=== PATIENT | male | born 1950 | race Caucasian/White ===

== ENCOUNTER 2016-11-18 15:15 | Inpatient (IN) | payer MEDICARE ==
[2016-11-18] MEDS ORDERED: NS 0.9% 1000 ML* 1,000 ML IV ONE (16:21)
[2016-11-18 16:36] LABS: Hematocrit 39 % (42-52); Hemoglobin 12.8 g/dl (14.0-18.0); Mean Corpuscular HGB Conc 33 g/dl (31-36); Mean Corpuscular Hemoglobin 30 pg (27-31); Mean Corpuscular Volume 91 fL (80-94); Mean Platelet Volume 9 um3 (7.4-10.4); Red Blood Count 4.25 10^6/ul (4.0-5.4); Red Cell Distribution Width 15 % (10.5-15); White Blood Count 12.4 10^3/ul (3.5-10.8)
[2016-11-18 16:51] LABS: ALT 85 U/L (7-52); Albumin 3.8 g/dL (3.2-5.2); Blood Urea Nitrogen 11 mg/dL (6-24); C Reactive Protein 46.19 mg/L (< 5.00); CO2 Carbon Dioxide 21 mmol/L (22-32); Calcium 9.2 mg/dL (8.6-10.3); Chloride 101 mmol/L (101-111); EGFR African American 96.1 (>60); EGFR Non-African American 74.8 (>60); Globulin 4.6 g/dL (2-4); Glucose 106 mg/dL (70-100); Lipase < 10 U/L (11.0-82.0); Sodium 130 mmol/L (133-145); Total Protein 8.4 g/dL (6.4-8.9)
[2016-11-18 16:52] LABS: Troponin I 0.01 ng/mL (<0.04)
[2016-11-18 16:54] LABS: Anion Gap 8 mmol/L (2-11)
--- NOTE | 2016-11-18 17:08 | RAD ---
Indication: Abdominal pain. Single frontal view of the chest performed at 0430 hours was reviewed. No priors are available. No mediastinal shift is noted. Heart is of normal size and configuration. Lung bean appear clear. IMPRESSION: NO ACTIVE CARDIOPULMONARY DISEASE IS NOTED.
[2016-11-18] MEDS ORDERED: Iohexol 300* (CONTRAST) 10 ML SDV IV ONE (17:38)
[2016-11-18 17:59] LABS: Urine Bilirubin Negative (Negative); Urine Glucose Negative (Negative); Urine Nitrite Negative (Negative)
[2016-11-18 18:52] LABS: Alkaline Phosphatase 151 U/L (34-104)
--- NOTE | 2016-11-18 19:14 | RAD ---
Indication: Abdominal pain, blood in stool. Contrast: Administered 135.8 ml of OMNIPAQUE 300 mgi/ml CT of the abdomen and pelvis was performed after oral and IV contrast administration. Coronal and sagittal reconstructed images were obtained. The lung bases demonstrate no pleural fluid, nodules or masses. Heart is of normal size without evidence of pericardial effusion. Liver is normal in size. It is diffusely decreased in density consistent with hepatic steatosis. The gallbladder demonstrates no calcified gallstones. No pericholecystic fluid or wall thickening is identified. The common duct is not dilated. The pancreas indicates no mass or pancreatic ductal dilatation. The spleen is normal in size. No adrenal lesions are noted. The kidneys demonstrate symmetric nephrograms without focal lesions. No hydronephrosis is noted. Aorta and inferior vena cava are unremarkable. No dilated loops of bowel are noted. Contrast is noted in the right colon. The descending colon demonstrates some mucosal edema from the splenic flexure to the junction of the descending sigmoid colon. There is thumbprinting noted. This is consistent with colitis the etiology of which is unclear. This may represent ischemic, or infectious. CT of the pelvis demonstrates enlarged prostate. Urinary bladder demonstrates diffuse wall thickening. No left-sided inguinal hernia is noted containing omentum. Diverticulosis without definite evidence of diverticulitis. The visualized abdominal organs are otherwise unremarkable. Degenerative disc disease at L5-S1 is noted. IMPRESSION: THERE IS SUBMUCOSAL EDEMA IN THE DESCENDING COLON CONSISTENT WITH COLITIS WHICH MAY BE INFECTIOUS OR ISCHEMIC IN ETIOLOGY. DIFFUSE WALL THICKENING OF THE URINARY BLADDER WITH ENLARGED PROSTATE. LEFT-SIDED INGUINAL HERNIA CONTAINING OMENTUM. HEPATIC STEATOSIS.
[2016-11-18] MEDS ORDERED: Ciprofloxacin 400MG IVPREMIX(* 400 MG/200 ML BAG IVPB ONE (19:17)
[2016-11-18] MEDS ORDERED: metroNIDAZOLE IV 500 MG/100ML* 500 MG/100 ML BAG IVPB ONE (19:17)
--- NOTE | 2016-11-18 19:20 | ED ---
Evans Christy Thomas, scribed for Markos Estrada MD on 11/18/16 at 1624 . Abdominal Pain/Male - HPI Summary HPI Summary: The pt is a 68 y/o M presenting to the ED c/o lower abd pain. The pain began yesterday afternoon, is rated 8/10, and is described as sharp in quality. The pain is worsened with movement and with drinking of water. He additionally c/o hard stools, bloody stools, bloating, and diaphoresis. He denies lightheadedness. He took a stool softener yesterday, which caused him to nearly pass out when taking a BM yesterday. The pt has had difficulty with defecating since his knee arthroplasty 3 weeks ago. Since his surgery, the pt reports having hard stools frequently. yesterday night, he had a bloody BM described as "rabbit poop and bloody water with no clots". His next BM was today, with similar "rabbit poop and bloody water" appearance but less blood. He reports straining during both of these BMs. He denies a previously documented Hx of hemorrhoids. He has been passing gas regularly. - History of Current Complaint Chief Complaint: EDAbdPain Stated Complaint: BLOOD IN STOOL Time Seen by Provider: 11/18/16 16:06 Hx Obtained From: Patient Onset/Duration: Sudden Onset, Lasting Days - onset 1 day ago, Still Present Severity Currently: Severe Pain Intensity: 8 Pain Scale Used: 0-10 Numeric Location: Other - lower abd Character: Sharp Associated Signs And Symptoms: Positive: Diaphoresis, Blood in Stool, Other - POS: hard stools, bloating; NEG: lightheadedness - Allergies/Home Medications Allergies/Adverse Reactions: Allergies Allergy/AdvReac Type Severity Reaction Status Date / Time No Known Allergies Allergy Verified 11/18/16 16:01 Home Medications: Home Medications Acetaminophen TAB* [Tylenol TAB*] 650 mg PO Q6H PRN 11/18/16 [History Confirmed 11/18/16] Finasteride TAB* [Proscar TAB*] 5 mg PO DAILY 11/18/16 [History Confirmed ] Sulfamethox/Trimethoprim DS* [Bactrim DS 800/160 TAB*] 1 tab PO BID 11/18/16 [ History Confirmed 11/18/16] Tamsulosin CAP* [Flomax CAP*] 0.4 mg PO DAILY 11/18/16 [History Confirmed ] PMH/Surg Hx/FS Hx/Imm Hx Previously Healthy: No Sensory History: Denies: Hx Legally Blind Opthamlomology History: Denies: Hx Eye Prosthesis - Surgical History Surgery Procedure, Year, and Place: hernia. back Infectious Disease History: No Infectious Disease History: Denies: Traveled Outside the [place] in Last 30 Days - Family History Known Family History: Positive: Diabetes Negative: Cardiac Disease - Social History Alcohol Use: None Substance Use Type: Reports: None, Prescribed Substance Use Comment - Amount & Last Used: percocet for pain after surgery Smoking Status (MU): Never Smoked Tobacco Type: Smokeless Tobacco Amount Used/How Often: 1 pouch every week Review of Systems Positive: Skin Diaphoresis. Negative: Fever Eyes: Negative ENT: Negative Cardiovascular: Negative Respiratory: Negative Positive: Abdominal Pain - lower, Other - POS: hard stools, bloody stools, bloating Genitourinary: Negative Musculoskeletal: Negative Skin: Negative Neurological: Negative, Other - NEG: lightheadedness Psychological: Normal All Other Systems Reviewed And Are Negative: Yes Physical Exam - Summary Physical Exam Summary: Gen: well-appearing, mild pain distress Skin: warm, color, dry Head: normal Eyes: EOMI, [place] ENT: normal Neck: supple, nontender Resp: CTA, breath sounds present Cardio: RRR Abd: bloated, diffusely tympanic. Bowel: present Rectal: external hemorrhoid that is not thrombosed. BRB at the anus. Musc: normal, strength/ROM intact Neuro: normal, sensory/motor intact, A&O x3 Psych: affect/mood appropriate Triage Information Reviewed: Yes Vital Signs On Initial Exam: Initial Vitals Temp Pulse Resp BP Pulse Ox 98.1 F 94 18 129/70 98 11/18/16 15:25 11/18/16 15:25 11/18/16 15:25 11/18/16 15:25 11/18/16 15:25 Vital Signs Reviewed: Yes - [place] Coma Scale Coma Scale Total: 15 Diagnostics - Vital Signs Vital Signs Temp Pulse Resp BP Pulse Ox 11/18/16 16:00 79 18 127/72 96 11/18/16 15:57 83 16 132/71 98 11/18/16 15:56 80 17 97 11/18/16 15:54 98.1 F 78 20 132/71 96 11/18/16 15:25 98.1 F 94 18 129/70 98 - Laboratory Lab Results: Lab Results 11/18/16 11/18/16 11/18/16 Range/Units 16:27 16:27 16:27 WBC 12.4 H (3.5-10.8) 10^3/ul RBC 4.25 (4.0-5.4) 10^6/ul Hgb 12.8 L (14.0-18.0) g/dl Hct 39 L (42-52) % MCV 91 (80-94) fL MCH 30 (27-31) pg MCHC 33 (31-36) g/dl RDW 15 (10.5-15) % Plt Count 290 (150-450) 10^3/ul MPV 9 (7.4-10.4) um3 Neut % (Auto) 84.7 H (38-83) % Lymph % (Auto) 8.8 L (25-47) % Mitchell % (Auto) 6.0 (1-9) % Eos % (Auto) 0.2 (0-6) % Baso % (Auto) 0.3 (0-2) % Absolute Neuts (auto) 10.5 H (1.5-7.7) 10^3/ul Absolute Lymphs (auto) 1.1 (1.0-4.8) 10^3/ul Absolute Monos (auto) 0.7 (0-0.8) 10^3/ul Absolute Eos (auto) 0 (0-0.6) 10^3/ul Absolute Basos (auto) 0 (0-0.2) 10^3/ul Absolute Nucleated RBC 0.01 10^3/ul Nucleated RBC % 0.1 INR (Anticoag Therapy) 1.06 (0.89-1.11) APTT 26.8 (26.0-36.3) seconds Sodium 130 L (133-145) mmol/L Potassium TNP Chloride 101 (101-111) mmol/L Carbon Dioxide 21 L (22-32) mmol/L Anion Gap 8 (2-11) mmol/L BUN 11 (6-24) mg/dL Creatinine 1.00 (0.67-1.17) mg/dL Est GFR ( Amer) 96.1 (>60) Est GFR (Non-Af Amer) 74.8 (>60) BUN/Creatinine Ratio 11.0 (8-20) Glucose 106 H (70-100) mg/dL Lactic Acid (0.5-2.0) mmol/L Calcium 9.2 (8.6-10.3) mg/dL Total Bilirubin 0.80 (0.2-1.0) mg/dL AST TNP ALT 85 H (7-52) U/L Alkaline Phosphatase 151 H (34-104) U/L Troponin I 0.01 (<0.04) ng/mL C-Reactive Protein 46.19 H (< 5.00) mg/L B-Natriuretic Peptide ( - 100) pg/mL Total Protein 8.4 (6.4-8.9) g/dL Albumin 3.8 (3.2-5.2) g/dL Globulin 4.6 H (2-4) g/dL Albumin/Globulin Ratio 0.8 L (1-3) Lipase < 10 L (11.0-82.0) U/L Urine Color Urine Appearance Urine pH (5-9) Ur Specific [place] (1.010-1.030) Urine Protein (Negative) Urine Ketones (Negative) Urine Blood (Negative) Urine Nitrate (Negative) Urine Bilirubin (Negative) Urine Urobilinogen (Negative) Ur Leukocyte Esterase (Negative) Urine Glucose (Negative) Blood Type Antibody Screen 11/18/16 11/18/16 11/18/16 Range/Units 16:27 16:27 16:27 WBC (3.5-10.8) 10^3/ul RBC (4.0-5.4) 10^6/ul Hgb (14.0-18.0) g/dl Hct (42-52) % MCV (80-94) fL MCH (27-31) pg MCHC (31-36) g/dl RDW (10.5-15) % Plt Count (150-450) 10^3/ul MPV (7.4-10.4) um3 Neut % (Auto) (38-83) % Lymph % (Auto) (25-47) % Mitchell % (Auto) (1-9) % Eos % (Auto) (0-6) % Baso % (Auto) (0-2) % Absolute Neuts (auto) (1.5-7.7) 10^3/ul Absolute Lymphs (auto) (1.0-4.8) 10^3/ul Absolute Monos (auto) (0-0.8) 10^3/ul Absolute Eos (auto) (0-0.6) 10^3/ul Absolute Basos (auto) (0-0.2) 10^3/ul Absolute Nucleated RBC 10^3/ul Nucleated RBC % INR (Anticoag Therapy) (0.89-1.11) APTT (26.0-36.3) seconds Sodium (133-145) mmol/L Potassium Chloride (101-111) mmol/L Carbon Dioxide (22-32) mmol/L Anion Gap (2-11) mmol/L BUN (6-24) mg/dL Creatinine (0.67-1.17) mg/dL Est GFR ( Amer) (>60) Est GFR (Non-Af Amer) (>60) BUN/Creatinine Ratio (8-20) Glucose (70-100) mg/dL Lactic Acid 1.2 (0.5-2.0) mmol/L Calcium (8.6-10.3) mg/dL Total Bilirubin (0.2-1.0) mg/dL AST ALT (7-52) U/L Alkaline Phosphatase (34-104) U/L Troponin I (<0.04) ng/mL C-Reactive Protein (< 5.00) mg/L B-Natriuretic Peptide 31 ( - 100) pg/mL Total Protein (6.4-8.9) g/dL Albumin (3.2-5.2) g/dL Globulin (2-4) g/dL Albumin/Globulin Ratio (1-3) Lipase (11.0-82.0) U/L Urine Color Urine Appearance Urine pH (5-9) Ur Specific [place] (1.010-1.030) Urine Protein (Negative) Urine Ketones (Negative) Urine Blood (Negative) Urine Nitrate (Negative) Urine Bilirubin (Negative) Urine Urobilinogen (Negative) Ur Leukocyte Esterase (Negative) Urine Glucose (Negative) Blood Type O Positive Antibody Screen Negative 11/18/16 11/18/16 Range/Units 17:06 17:41 WBC (3.5-10.8) 10^3/ul RBC (4.0-5.4) 10^6/ul Hgb (14.0-18.0) g/dl Hct (42-52) % MCV (80-94) fL MCH (27-31) pg MCHC (31-36) g/dl RDW (10.5-15) % Plt Count (150-450) 10^3/ul MPV (7.4-10.4) um3 Neut % (Auto) (38-83) % Lymph % (Auto) (25-47) % Mitchell % (Auto) (1-9) % Eos % (Auto) (0-6) % Baso % (Auto) (0-2) % Absolute Neuts (auto) (1.5-7.7) 10^3/ul Absolute Lymphs (auto) (1.0-4.8) 10^3/ul Absolute Monos (auto) (0-0.8) 10^3/ul Absolute Eos (auto) (0-0.6) 10^3/ul Absolute Basos (auto) (0-0.2) 10^3/ul Absolute Nucleated RBC 10^3/ul Nucleated RBC % INR (Anticoag Therapy) (0.89-1.11) APTT (26.0-36.3) seconds Sodium (133-145) mmol/L Potassium 4.2 Chloride (101-111) mmol/L Carbon Dioxide (22-32) mmol/L Anion Gap (2-11) mmol/L BUN (6-24) mg/dL Creatinine (0.67-1.17) mg/dL Est GFR ( Amer) (>60) Est GFR (Non-Af Amer) (>60) BUN/Creatinine Ratio (8-20) Glucose (70-100) mg/dL Lactic Acid (0.5-2.0) mmol/L Calcium (8.6-10.3) mg/dL Total Bilirubin (0.2-1.0) mg/dL AST 31 ALT (7-52) U/L Alkaline Phosphatase (34-104) U/L Troponin I (<0.04) ng/mL C-Reactive Protein (< 5.00) mg/L B-Natriuretic Peptide ( - 100) pg/mL Total Protein (6.4-8.9) g/dL Albumin (3.2-5.2) g/dL Globulin (2-4) g/dL Albumin/Globulin Ratio (1-3) Lipase (11.0-82.0) U/L Urine Color Yellow Urine Appearance Clear Urine pH 6.0 (5-9) Ur Specific [place] 1.008 L (1.010-1.030) Urine Protein Negative (Negative) Urine Ketones Negative (Negative) Urine Blood Negative (Negative) Urine Nitrate Negative (Negative) Urine Bilirubin Negative (Negative) Urine Urobilinogen Negative (Negative) Ur Leukocyte Esterase Negative (Negative) Urine Glucose Negative (Negative) Blood Type Antibody Screen Result Diagrams: 11/18/16 16:27 11/18/16 17:06 Lab Statement: Any lab studies that have been ordered have been reviewed, and results considered in the medical decision making process. - Radiology CXR Xray Interpretation: No Acute Changes - No active cardiopulmonary disease is noted. Radiology Interpretation Completed By: Radiologist Re-Evaluation - Re-Evaluation First Eval Re-Evaluation Time: 18:38 Change: Unchanged Comment: Still has not yet gone to CT. Abdominal Pain Fem Course/Dx - Course Course Of Treatment: CRITICAL CARE TIME LESS THAN 30 MINUTES. ADMIT HOSPITALIST STABLE. - Diagnoses Provider Diagnoses: Colitis, GI bleed - Provider Notifications Discussed Care Of Patient With: Jose Huertas Time Discussed With Above Provider: 18:40 Instructed by Provider To: Other - Discussed case. Discharge - Discharge Plan Condition: Stable Disposition: ADMITTED TO [facility] Referrals: No Primary Care Phys,NOPCP [Primary Care Provider] - The documentation as recorded by the Evans pagan Thomas accurately reflects the service I personally performed and the decisions made by me, Markos Estrada MD.
[2016-11-18] MEDS ORDERED: NS 0.9% 1000 ML* 1,000 ML IV SCH (19:30)
--- NOTE | 2016-11-18 19:58 | HP ---
H&P (Free Text) History and Physical: PCP: none Date/Time of Evaluation: 11/18/2016 193 CC: bright red blood per rectum HPI: Mr Walker is a 66YO male poor historian HX BPH who initially states he takes no prescribed medications, but when asked about meds for his enlarged prostate states, "Yeah, I take a couple." He relates onset of diffuse sharp abdominal pain associated with bright red blood per rectum. While he reported this a lower abdominal pain to the ED provider, to me he relates it is more diffuse to R sided. He denies HX of similar, injury, change in diet, F/C, N/V, sweats, chest pain, SOB, palpitations, B/U/F of urine, or other issues. He denies exacerbating or alleviating symptoms. PMedHx BPH Ambulatory Orders Nursing to reconcile. Acetaminophen TAB* [Tylenol TAB*] 650 mg PO Q6H PRN 11/18/16 Finasteride TAB* [Proscar TAB*] 5 mg PO DAILY 11/18/16 Sulfamethox/Trimethoprim DS* [Bactrim DS 800/160 TAB*] 1 tab PO BID 11/18/16 Tamsulosin CAP* [Flomax CAP*] 0.4 mg PO DAILY 11/18/16 Allergies No Known Allergies Allergy (Verified 11/18/16 16:01) PSurgHx R TKA October 2016 R inguinal hernia repair SocHx: quit smoking ~2 months ago, mild alcohol, no recreational drugs; lives with his ; full code status FamHx: positive for HTN ROS: as above, otherwise reviewed and all were negative Constitutional: NAD, normally developed, obese white male vitals: Vital Signs Temp 36.7 C 11/18/16 15:54 Pulse 82 11/18/16 19:23 Resp 16 11/18/16 19:23 BP 134/77 11/18/16 19:23 Pulse Ox 98 11/18/16 19:03 Intake & Output 11/17/16 11/18/16 11/18/16 23:59 11:59 23:59 Intake Total 1000 Balance 1000 Weight 102.058 kg Intake: IV Fluids 1000 Other: Date of Last Bowel 11/18/13 Movement Estimated Stool Amount Small HEENM: atraumatic; sclera/conjunctiva: non-icteric/clear; hearing: clinically intact; oropharynx: clear, mucosa moist Neck: soft tissue: non-tender; thyroid: normal Pulmonary: clear to auscultation bilaterally, good aeration, no accessory muscle use CV: RR/RR, normal S1S2, no carotid bruit, no jugular venous distention, 2+ B DP/ PT, no edema Abdominal: soft, non-distended, non-tender, no rebound/guarding/rigidity, normoactive bowel sounds, no hepatosplenomegaly or masses, no costovertebral angle tenderness Musculoskeletal: general: grossly intact; gait: stable Integumental: normal appearance and texture of exposed skin Psychiatric orientation: AA&O to PPS affect: calm mood: cooperative eye contact: fair content: lacking in details, inaccurate to facts responses: timely insight: fair to poor Testing: Lab Results 11/18/16 11/18/16 11/18/16 Range/Units 16:27 16:27 16:27 WBC 12.4 H (3.5-10.8) 10^3/ul RBC 4.25 (4.0-5.4) 10^6/ul Hgb 12.8 L (14.0-18.0) g/dl Hct 39 L (42-52) % MCV 91 (80-94) fL MCH 30 (27-31) pg MCHC 33 (31-36) g/dl RDW 15 (10.5-15) % Plt Count 290 (150-450) 10^3/ul MPV 9 (7.4-10.4) um3 Neut % (Auto) 84.7 H (38-83) % Lymph % (Auto) 8.8 L (25-47) % [place] % (Auto) 6.0 (1-9) % Eos % (Auto) 0.2 (0-6) % Baso % (Auto) 0.3 (0-2) % Absolute Neuts (auto) 10.5 H (1.5-7.7) 10^3/ul Absolute Lymphs (auto) 1.1 (1.0-4.8) 10^3/ul Absolute Monos (auto) 0.7 (0-0.8) 10^3/ul Absolute Eos (auto) 0 (0-0.6) 10^3/ul Absolute Basos (auto) 0 (0-0.2) 10^3/ul Absolute Nucleated RBC 0.01 10^3/ul Nucleated RBC % 0.1 INR (Anticoag Therapy) 1.06 (0.89-1.11) APTT 26.8 (26.0-36.3) seconds Sodium 130 L (133-145) mmol/L Potassium TNP Chloride 101 (101-111) mmol/L Carbon Dioxide 21 L (22-32) mmol/L Anion Gap 8 (2-11) mmol/L BUN 11 (6-24) mg/dL Creatinine 1.00 (0.67-1.17) mg/dL Est GFR ( Amer) 96.1 (>60) Est GFR (Non-Af Amer) 74.8 (>60) BUN/Creatinine Ratio 11.0 (8-20) Glucose 106 H (70-100) mg/dL Lactic Acid (0.5-2.0) mmol/L Calcium 9.2 (8.6-10.3) mg/dL Total Bilirubin 0.80 (0.2-1.0) mg/dL AST TNP ALT 85 H (7-52) U/L Alkaline Phosphatase 151 H (34-104) U/L Troponin I 0.01 (<0.04) ng/mL C-Reactive Protein 46.19 H (< 5.00) mg/L B-Natriuretic Peptide ( - 100) pg/mL Total Protein 8.4 (6.4-8.9) g/dL Albumin 3.8 (3.2-5.2) g/dL Globulin 4.6 H (2-4) g/dL Albumin/Globulin Ratio 0.8 L (1-3) Lipase < 10 L (11.0-82.0) U/L Urine Color Urine Appearance Urine pH (5-9) Ur Specific [place] (1.010-1.030) Urine Protein (Negative) Urine Ketones (Negative) Urine Blood (Negative) Urine Nitrate (Negative) Urine Bilirubin (Negative) Urine Urobilinogen (Negative) Ur Leukocyte Esterase (Negative) Urine Glucose (Negative) Blood Type Antibody Screen 11/18/16 11/18/16 11/18/16 Range/Units 16:27 16:27 16:27 WBC (3.5-10.8) 10^3/ul RBC (4.0-5.4) 10^6/ul Hgb (14.0-18.0) g/dl Hct (42-52) % MCV (80-94) fL MCH (27-31) pg MCHC (31-36) g/dl RDW (10.5-15) % Plt Count (150-450) 10^3/ul MPV (7.4-10.4) um3 Neut % (Auto) (38-83) % Lymph % (Auto) (25-47) % [place] % (Auto) (1-9) % Eos % (Auto) (0-6) % Baso % (Auto) (0-2) % Absolute Neuts (auto) (1.5-7.7) 10^3/ul Absolute Lymphs (auto) (1.0-4.8) 10^3/ul Absolute Monos (auto) (0-0.8) 10^3/ul Absolute Eos (auto) (0-0.6) 10^3/ul Absolute Basos (auto) (0-0.2) 10^3/ul Absolute Nucleated RBC 10^3/ul Nucleated RBC % INR (Anticoag Therapy) (0.89-1.11) APTT (26.0-36.3) seconds Sodium (133-145) mmol/L Potassium Chloride (101-111) mmol/L Carbon Dioxide (22-32) mmol/L Anion Gap (2-11) mmol/L BUN (6-24) mg/dL Creatinine (0.67-1.17) mg/dL Est GFR ( Amer) (>60) Est GFR (Non-Af Amer) (>60) BUN/Creatinine Ratio (8-20) Glucose (70-100) mg/dL Lactic Acid 1.2 (0.5-2.0) mmol/L Calcium (8.6-10.3) mg/dL Total Bilirubin (0.2-1.0) mg/dL AST ALT (7-52) U/L Alkaline Phosphatase (34-104) U/L Troponin I (<0.04) ng/mL C-Reactive Protein (< 5.00) mg/L B-Natriuretic Peptide 31 ( - 100) pg/mL Total Protein (6.4-8.9) g/dL Albumin (3.2-5.2) g/dL Globulin (2-4) g/dL Albumin/Globulin Ratio (1-3) Lipase (11.0-82.0) U/L Urine Color Urine Appearance Urine pH (5-9) Ur Specific [place] (1.010-1.030) Urine Protein (Negative) Urine Ketones (Negative) Urine Blood (Negative) Urine Nitrate (Negative) Urine Bilirubin (Negative) Urine Urobilinogen (Negative) Ur Leukocyte Esterase (Negative) Urine Glucose (Negative) Blood Type O Positive Antibody Screen Negative 11/18/16 11/18/16 Range/Units 17:06 17:41 WBC (3.5-10.8) 10^3/ul RBC (4.0-5.4) 10^6/ul Hgb (14.0-18.0) g/dl Hct (42-52) % MCV (80-94) fL MCH (27-31) pg MCHC (31-36) g/dl RDW (10.5-15) % Plt Count (150-450) 10^3/ul MPV (7.4-10.4) um3 Neut % (Auto) (38-83) % Lymph % (Auto) (25-47) % [place] % (Auto) (1-9) % Eos % (Auto) (0-6) % Baso % (Auto) (0-2) % Absolute Neuts (auto) (1.5-7.7) 10^3/ul Absolute Lymphs (auto) (1.0-4.8) 10^3/ul Absolute Monos (auto) (0-0.8) 10^3/ul Absolute Eos (auto) (0-0.6) 10^3/ul Absolute Basos (auto) (0-0.2) 10^3/ul Absolute Nucleated RBC 10^3/ul Nucleated RBC % INR (Anticoag Therapy) (0.89-1.11) APTT (26.0-36.3) seconds Sodium (133-145) mmol/L Potassium 4.2 Chloride (101-111) mmol/L Carbon Dioxide (22-32) mmol/L Anion Gap (2-11) mmol/L BUN (6-24) mg/dL Creatinine (0.67-1.17) mg/dL Est GFR ( Amer) (>60) Est GFR (Non-Af Amer) (>60) BUN/Creatinine Ratio (8-20) Glucose (70-100) mg/dL Lactic Acid (0.5-2.0) mmol/L Calcium (8.6-10.3) mg/dL Total Bilirubin (0.2-1.0) mg/dL AST 31 ALT (7-52) U/L Alkaline Phosphatase (34-104) U/L Troponin I (<0.04) ng/mL C-Reactive Protein (< 5.00) mg/L B-Natriuretic Peptide ( - 100) pg/mL Total Protein (6.4-8.9) g/dL Albumin (3.2-5.2) g/dL Globulin (2-4) g/dL Albumin/Globulin Ratio (1-3) Lipase (11.0-82.0) U/L Urine Color Yellow Urine Appearance Clear Urine pH 6.0 (5-9) Ur Specific [place] 1.008 L (1.010-1.030) Urine Protein Negative (Negative) Urine Ketones Negative (Negative) Urine Blood Negative (Negative) Urine Nitrate Negative (Negative) Urine Bilirubin Negative (Negative) Urine Urobilinogen Negative (Negative) Ur Leukocyte Esterase Negative (Negative) Urine Glucose Negative (Negative) Blood Type Antibody Screen CXR, personally reviewed: IMPRESSION: NO ACTIVE CARDIOPULMONARY DISEASE IS NOTED. CT abd/pel W, personally reviewed: IMPRESSION: THERE IS SUBMUCOSAL EDEMA IN THE DESCENDING COLON CONSISTENT WITH COLITIS WHICH MAY BE INFECTIOUS OR ISCHEMIC IN ETIOLOGY. DIFFUSE WALL THICKENING OF THE URINARY BLADDER WITH ENLARGED PROSTATE. LEFT-SIDED INGUINAL HERNIA CONTAINING OMENTUM. HEPATIC STEATOSIS. Impression: 66M presenting with DIAGNOSIS & PLAN Primary lower GI bleed 2nd colitis ? infectious vs ischemic vs doubt inflammatory : type & screen : trend H&H : IV ciprofloxacin & metronidazole : IVFs : consider GI consult pending H&H trend, if no clinically significant decrease may be worked up outpatient : supplemental oxygen : supportive care Secondary R TKA October 2016 : PT evaluation : consider ortho consult in AM, if clinically necessary BPH : review meds once reconciled Admission Rational: observation for lower GI bleed DVTp: SCDs, no anticoagulation given acute bleed Code Status: full HCP:
[2016-11-19 01:05] LABS: Hematocrit 35 % (42-52); Hemoglobin 11.7 g/dl (14.0-18.0)
[2016-11-19] MEDS: metroNIDAZOLE IV 500 MG/100ML* 500 MG/100 ML BAG IVPB SCH ×3 (05:44→22:26)
[2016-11-19 08:31] LABS: Hematocrit 35 % (42-52); Hemoglobin 11.5 g/dl (14.0-18.0); Mean Corpuscular HGB Conc 33 g/dl (31-36); Mean Corpuscular Hemoglobin 30 pg (27-31); Mean Corpuscular Volume 91 fL (80-94); Mean Platelet Volume 9 um3 (7.4-10.4); Red Cell Distribution Width 15 % (10.5-15); White Blood Count 16.3 10^3/ul (3.5-10.8)
[2016-11-19] MEDS ORDERED: Acetaminophen TAB* 325 MG PO PRN (08:31)
[2016-11-19] MEDS: Ciprofloxacin IV(*) 400 MG in D5W 250 ML BAG* 160 ML IVPB SCH ×2 (09:38→21:13)
[2016-11-19] MEDS: Tamsulosin CAP* 0.4 MG PO SCH (11:22)
[2016-11-19] MEDS: Ferrous Sulfate TAB* 325 MG PO SCH ×2 (11:22→21:17)
[2016-11-19] MEDS: Finasteride TAB* 5 MG PO SCH (11:22)
--- NOTE | 2016-11-19 11:31 | PN ---
Subjective Date of Service: 11/19/16 Interval History: Patient seen this morning. Reports bleeding seems to have nearly resolved, with BM this morning just noted a bit of blood on the toilet paper, stool was brown. Pain still present but he thinks that is getting better as well. Noted 3 small petechial areas on his R upper thigh that he says are new. Was placed on Bactrim a few days ago due to concern about some redness around the surgical site. Family History: Unchanged from Admission Social History: Unchanged from Admission Past Medical History: Unchanged from Admission Objective Active Medications: Acetaminophen (Tylenol Tab*) 650 mg PO Q6H PRN Ferrous Sulfate (Ferrous Sulfate Tab*) 325 mg PO BID [facility] Finasteride (Proscar Tab*) 5 mg PO DAILY [facility] Ciprofloxacin 400 mg/ Dextrose 200 mls @ 200 mls/hr IVPB Q12H [facility] Metronidazole/Sodium Chloride (Flagyl 500 Mg Ivpb*) 500 mg in 100 mls @ 100 mls /hr IVPB Q8H [facility] Tamsulosin HCl (Flomax Cap*) 0.4 mg PO DAILY [facility] Vital Signs 11/18/16 11/18/16 11/18/16 19:03 19:23 19:50 Temperature 98.2 F Pulse Rate 88 82 79 Respiratory 16 16 Rate Blood Pressure 134/77 139/54 (mmHg) O2 Sat by Pulse 98 96 Oximetry 11/18/16 11/18/16 11/19/16 20:00 23:15 00:00 Temperature 98.7 F Pulse Rate 81 Respiratory 16 16 Rate Blood Pressure 141/67 (mmHg) O2 Sat by Pulse 97 97 Oximetry 11/19/16 11/19/16 11/19/16 01:27 03:10 07:18 Temperature 98.8 F 98.8 F Pulse Rate 78 78 Respiratory 16 18 Rate Blood Pressure 134/61 128/68 (mmHg) O2 Sat by Pulse 97 98 96 Oximetry Oxygen Devices in Use Now: None Appearance: Middle-aged, M, laying in bed in NAD Eyes: No Scleral Icterus Ears/Nose/Mouth/Throat: Mucous Membranes Moist Neck: NL Appearance and Movements; NL JVP Respiratory: Symmetrical Chest Expansion and Respiratory Effort, Clear to Auscultation Cardiovascular: NL Sounds; No Murmurs; No JVD, RRR Abdominal: - - Soft, non-distended, TTP in LLQ and LUQ, no rebound/guarding, BS+ Lymphatic: No Cervical Adenopathy Extremities: No Edema Skin: - - L knee with well healing incision, no redness Neurological: Alert and Oriented x 3 Result Diagrams: 11/19/16 08:07 11/18/16 17:06 Assess/Plan/Problems-Billing Assessment: Bloody BMs, colitis in a 66 yo M with hx of BPH, recent L TKA - Patient Problems (1) Colitis Current Visit: Yes Comment: Infectious vs ischemic. Bleeding seems to have resolved. H/H stable. WBC up a bit higher today. Continue IV Cipro/Flagyl for now. C diff negative, remainder of stool work-up pending. Dr. Brewer to see the patient to determine need for inpatient colonoscopy. (2) BPH (benign prostatic hyperplasia) Current Visit: Yes Comment: Continue home meds (3) S/P total knee arthroplasty Current Visit: Yes Comment: Seems to be healing well. No signs of infection, stop Bactrim. (4) DVT prophylaxis Current Visit: Yes Comment: SCDs Status and Disposition: Inpatient for IV ABx, possible c-scope
[2016-11-19 15:46] LABS: Hematocrit 34 % (42-52); Hemoglobin 11.7 g/dl (14.0-18.0)
[2016-11-19] MEDS: PEG 3000 GI LAVAGE* 1 GALLON PO SCH (17:32)
--- NOTE | 2016-11-19 22:58 | CONS ---
CONSULTATION REPORT: DATE OF CONSULT: 11/19/16 REQUESTING PHYSICIAN: Jose Huertas MD NARRATIVE: Mr. Walker is a very pleasant 66-year-old gentleman, who recently had a knee replacement. He states that he was doing well from a GI standpoint up until this past Friday. He had been constipated. He thought secondary to the pain medications that he was on for his knee pain. Normally, he is not constipated. On Friday, he states that he developed diarrhea. Friday night, he had shaking chills and sweats and then on Friday, he had bright red blood per rectum. He was still having diarrhea on Friday. He came to the emergency room late last night. He had been on antibiotics recently for suspected cellulitis. He was using Bactrim. He states he has never had symptoms like this before. He knows he has had a colonoscopy in the past, but does not remember when. He believes it was through the [facility]. He believes it was normal. No family history of inflammatory bowel disease. He has been having left-sided abdominal pain and cramps. Usually, the pain precedes having a bowel movements. He denies any other new medication. No fevers or chills other than one episode on Friday, night. He did have a CT in the emergency room, which showed descending colon colitis, hepatic steatosis, left inguinal hernia and bladder wall thickening. He was started on antibiotics Cipro and Flagyl and he states he feels a little bit better today, but not dramatically. Of note, his white count has gone from 12.4 up to 16.3. PAST MEDICAL HISTORY: Significant for BPH. PAST SURGICAL HISTORY: Include: 1. Right inguinal hernia repair. 2. Recent knee surgery. MEDICATIONS: Prior to admission include: 1. Flomax. 2. Bactrim. 3. Proscar. 4. Tylenol. ALLERGIES: He has no known drug allergies. FAMILY HISTORY: Hypertension, again no IBD in the family. SOCIAL HISTORY: He quit smoking a few months ago. He drinks occasional alcohol. REVIEW OF SYSTEMS: 12 systems were reviewed, other than that mentioned in the HPI were unremarkable. PHYSICAL EXAM: Temperature is 98.6, blood pressure is 135/62, pulse is 79. General: Well-appearing male, in no apparent distress, alert, oriented, pleasant, fluent. HEENT: Mucous membranes are moist without lesions, ulcers, or exudate. N anshul is supple. Trachea is midline. Head is normocephalic, atraumatic. Heart: Regular rate and rhythm. Lungs are clear to auscultation. Abdomen: Obese, positive bowel sounds, soft, left-sided tenderness, no rebound, no guarding, no right-sided tenderness. Skin is warm and dry. LABORATORY DATA: CRP is 46.19. AST is 85. Alk phos is 151. Hemoglobin is 11.7. CT, please see above. ASSESSMENT AND PLAN: This is a 66-year-old gentleman with colitis. Possibilities would include infectious given his increasing white count. However, he has a negative C. Diff so far. The other stool studies are pending. Could be inflammatory; however, this seems to be the wrong age for that and I wonder why now would he have Crohn's or ulcerative colitis. Could be ischemic; however, it does not look like that on the CT. There is no evidence of diverticulosis on the CT. Thus, I doubt diverticulitis. At this point, I think, he needs visualization of his ascending colon. I will make arrangements for either flex sig or a colonoscopy tomorrow. We should continue with the antibiotics and we will see him again tomorrow. [id number]/[facility] #: [id number] DEMOND
[2016-11-20 05:52] LABS: Hematocrit 34 % (42-52); Hemoglobin 11.5 g/dl (14.0-18.0); Mean Corpuscular HGB Conc 34 g/dl (31-36); Mean Corpuscular Hemoglobin 31 pg (27-31); Mean Corpuscular Volume 90 fL (80-94); Mean Platelet Volume 9 um3 (7.4-10.4); Red Blood Count 3.73 10^6/ul (4.0-5.4); Red Cell Distribution Width 15 % (10.5-15); White Blood Count 15.5 10^3/ul (3.5-10.8)
[2016-11-20 05:57] LABS: BUN/Creatinine Ratio 9.1 (8-20); Calcium 8.6 mg/dL (8.6-10.3); EGFR African American 111.4 (>60); EGFR Non-African American 86.6 (>60); Potassium 3.6 mmol/L (3.5-5.0)
[2016-11-20] MEDS: PEG 3000 GI LAVAGE* 1 GALLON PO SCH (06:17)
[2016-11-20] MEDS: metroNIDAZOLE IV 500 MG/100ML* 500 MG/100 ML BAG IVPB SCH ×3 (06:17→22:17)
[2016-11-20] MEDS: Tamsulosin CAP* 0.4 MG PO SCH (08:48)
[2016-11-20] MEDS: Ferrous Sulfate TAB* 325 MG PO SCH ×2 (08:48→20:58)
[2016-11-20] MEDS: Finasteride TAB* 5 MG PO SCH (08:48)
[2016-11-20] MEDS: Ciprofloxacin IV(*) 400 MG in D5W 250 ML BAG* 160 ML IVPB SCH ×2 (09:23→20:49)
[2016-11-20] MEDS ORDERED: fentaNYL* 50 MCG/ML 2 ML VIAL (100 MCG VIAL) ONE (14:51)
[2016-11-20] MEDS ORDERED: Midazolam* 1 MG/ML 10 ML VIAL (10 MG) ONE (14:51)
--- NOTE | 2016-11-20 16:31 | PRO ---
DATE OF PROCEDURE: 11/20/2016 - inpatient, room 440. PROCEDURE PERFORMED: Flexible sigmoidoscopy with biopsies. MEDICINES: Versed 3 mg IV and Fentanyl 25 mcg IV. HISTORY: This is a 66-year-old gentleman who is a few weeks status post knee replacement. He initially was experiencing constipation, but then developed abdominal pain, diarrhea, and rectal bleeding. He presented to the emergency room with a CAT scan of the abdomen demonstrated inflammatory change of the descending colon. For this reason, a sigmoidoscopy is being performed. PROCEDURE: After the procedure was discussed with the patient, risks and benefits were outlined, written consent was obtained. The patient was placed in the left lateral decubitus position and a rectal exam was performed. The rectal exam did demonstrate an external hemorrhoid, but no other lesion or palpable abnormality. At that point, a video adult flexible colonoscope was inserted anally and advanced to approximately the distal transverse colon. The quality of the preparation was good. The patient tolerated the procedure well and there were no immediate complications. FINDINGS: Sigmoidoscopy to the distal transverse colon was performed. The area of the distal transverse colon was normal; however, the descending colon and proximal aspect of the sigmoid colon was notable for a moderate inflammatory change with submucosal edema and erosions consistent with mild to moderate ischemic colitis. Biopsies were obtained. More distally in the distal sigmoid colon and rectum, the mucosal pattern normalized. There was no polyp or mass. There were a few scattered diverticula. The submucosal vascular pattern in these normal regions appeared grossly normal. The rectum was viewed both in the forward view and retroflex position and was normal. CONCLUSION: Evidence of ischemic colitis involving the descending colon and proximal sigmoid colon as described above, biopsies obtained. RECOMMENDATION: The involvement is not too severe. I would continue with antibiotics and perhaps one more day in the hospital and then a discharge. [id number]/[facility] #: [id number] [facility]
--- NOTE | 2016-11-20 16:40 | PN ---
Subjective Date of Service: 11/20/16 Interval History: Seen after flex-sig Pain resolved no BRBPR Feels hungry and would like to eat Was concerned left knee was red earlier but not resolved Family History: Unchanged from Admission Social History: Unchanged from Admission Past Medical History: Unchanged from Admission Objective Active Medications: Acetaminophen (Tylenol Tab*) 650 mg PO Q6H PRN PRN Reason: PAIN Last Admin: 11/19/16 11:22 Dose: 650 mg Ferrous Sulfate (Ferrous Sulfate Tab*) 325 mg PO BID [facility] Last Admin: 11/20/16 08:48 Dose: 325 mg Finasteride (Proscar Tab*) 5 mg PO DAILY [facility] Last Admin: 11/20/16 08:48 Dose: 5 mg Ciprofloxacin 400 mg/ Dextrose 200 mls @ 200 mls/hr IVPB Q12H [facility] Last Admin: 11/20/16 09:23 Dose: 200 mls/hr Metronidazole/Sodium Chloride (Flagyl 500 Mg Ivpb*) 500 mg in 100 mls @ 100 mls /hr IVPB Q8H [facility] Last Admin: 11/20/16 13:32 Dose: 100 mls/hr Tamsulosin HCl (Flomax Cap*) 0.4 mg PO DAILY [facility] Last Admin: 11/20/16 08:48 Dose: 0.4 mg Vital Signs 11/19/16 11/19/16 11/20/16 19:10 19:36 00:15 Temperature 99.3 F 98.8 F Pulse Rate 81 85 Respiratory 24 16 16 Rate Blood Pressure 137/64 143/66 (mmHg) O2 Sat by Pulse 96 98 Oximetry 11/20/16 11/20/16 11/20/16 03:43 07:24 08:30 Temperature 98.6 F 98.4 F Pulse Rate 87 72 Respiratory 16 18 18 Rate Blood Pressure 113/73 151/78 (mmHg) O2 Sat by Pulse 97 97 Oximetry 11/20/16 11/20/16 11:48 16:00 Temperature 98.4 F 98.2 F Pulse Rate 97 74 Respiratory 22 18 Rate Blood Pressure 113/61 126/69 (mmHg) O2 Sat by Pulse 97 97 Oximetry Oxygen Devices in Use Now: None Appearance: NAD Eyes: No Scleral Icterus, PERRLA Ears/Nose/Mouth/Throat: NL Teeth, Lips, Gums, Clear Oropharnyx Neck: NL Appearance and Movements; NL JVP, Trachea Midline Respiratory: Symmetrical Chest Expansion and Respiratory Effort, Clear to Auscultation Cardiovascular: RRR Abdominal: NL Sounds; No Tenderness; No Distention, No Hepatosplenomegaly Lymphatic: No Cervical Adenopathy Extremities: No Edema, - - left knee with surgical incision c/d/i very faint erythema overlying knee Neurological: Alert and Oriented x 3 Result Diagrams: 11/20/16 05:26 11/20/16 05:26 Additional Lab and Data: Lab Results 11/18/16 11/18/16 11/18/16 Range/Units 16:27 16:27 16:27 WBC 12.4 H (3.5-10.8) 10^3/ul RBC 4.25 (4.0-5.4) 10^6/ul Hgb 12.8 L (14.0-18.0) g/dl Hct 39 L (42-52) % MCV 91 (80-94) fL MCH 30 (27-31) pg MCHC 33 (31-36) g/dl RDW 15 (10.5-15) % Plt Count 290 (150-450) 10^3/ul MPV 9 (7.4-10.4) um3 Neut % (Auto) 84.7 H (38-83) % Lymph % (Auto) 8.8 L (25-47) % [place] % (Auto) 6.0 (1-9) % Eos % (Auto) 0.2 (0-6) % Baso % (Auto) 0.3 (0-2) % Absolute Neuts (auto) 10.5 H (1.5-7.7) 10^3/ul Absolute Lymphs (auto) 1.1 (1.0-4.8) 10^3/ul Absolute Monos (auto) 0.7 (0-0.8) 10^3/ul Absolute Eos (auto) 0 (0-0.6) 10^3/ul Absolute Basos (auto) 0 (0-0.2) 10^3/ul Absolute Nucleated RBC 0.01 10^3/ul Nucleated RBC % 0.1 INR (Anticoag Therapy) 1.06 (0.89-1.11) APTT 26.8 (26.0-36.3) seconds Sodium 130 L (133-145) mmol/L Potassium TNP Chloride 101 (101-111) mmol/L Carbon Dioxide 21 L (22-32) mmol/L Anion Gap 8 (2-11) mmol/L BUN 11 (6-24) mg/dL Creatinine 1.00 (0.67-1.17) mg/dL Est GFR ( Amer) 96.1 (>60) Est GFR (Non-Af Amer) 74.8 (>60) BUN/Creatinine Ratio 11.0 (8-20) Glucose 106 H (70-100) mg/dL Lactic Acid (0.5-2.0) mmol/L Calcium 9.2 (8.6-10.3) mg/dL Total Bilirubin 0.80 (0.2-1.0) mg/dL AST TNP ALT 85 H (7-52) U/L Alkaline Phosphatase 151 H (34-104) U/L Troponin I 0.01 (<0.04) ng/mL C-Reactive Protein 46.19 H (< 5.00) mg/L B-Natriuretic Peptide ( - 100) pg/mL Total Protein 8.4 (6.4-8.9) g/dL Albumin 3.8 (3.2-5.2) g/dL Globulin 4.6 H (2-4) g/dL Albumin/Globulin Ratio 0.8 L (1-3) Lipase < 10 L (11.0-82.0) U/L Urine Color Urine Appearance Urine pH (5-9) Ur Specific [place] (1.010-1.030) Urine Protein (Negative) Urine Ketones (Negative) Urine Blood (Negative) Urine Nitrate (Negative) Urine Bilirubin (Negative) Urine Urobilinogen (Negative) Ur Leukocyte Esterase (Negative) Urine Glucose (Negative) Blood Type Antibody Screen 11/18/16 11/18/16 11/18/16 Range/Units 16:27 16:27 16:27 WBC (3.5-10.8) 10^3/ul RBC (4.0-5.4) 10^6/ul Hgb (14.0-18.0) g/dl Hct (42-52) % MCV (80-94) fL MCH (27-31) pg MCHC (31-36) g/dl RDW (10.5-15) % Plt Count (150-450) 10^3/ul MPV (7.4-10.4) um3 Neut % (Auto) (38-83) % Lymph % (Auto) (25-47) % [place] % (Auto) (1-9) % Eos % (Auto) (0-6) % Baso % (Auto) (0-2) % Absolute Neuts (auto) (1.5-7.7) 10^3/ul Absolute Lymphs (auto) (1.0-4.8) 10^3/ul Absolute Monos (auto) (0-0.8) 10^3/ul Absolute Eos (auto) (0-0.6) 10^3/ul Absolute Basos (auto) (0-0.2) 10^3/ul Absolute Nucleated RBC 10^3/ul Nucleated RBC % INR (Anticoag Therapy) (0.89-1.11) APTT (26.0-36.3) seconds Sodium (133-145) mmol/L Potassium Chloride (101-111) mmol/L Carbon Dioxide (22-32) mmol/L Anion Gap (2-11) mmol/L BUN (6-24) mg/dL Creatinine (0.67-1.17) mg/dL Est GFR ( Amer) (>60) Est GFR (Non-Af Amer) (>60) BUN/Creatinine Ratio (8-20) Glucose (70-100) mg/dL Lactic Acid 1.2 (0.5-2.0) mmol/L Calcium (8.6-10.3) mg/dL Total Bilirubin (0.2-1.0) mg/dL AST ALT (7-52) U/L Alkaline Phosphatase (34-104) U/L Troponin I (<0.04) ng/mL C-Reactive Protein (< 5.00) mg/L B-Natriuretic Peptide 31 ( - 100) pg/mL Total Protein (6.4-8.9) g/dL Albumin (3.2-5.2) g/dL Globulin (2-4) g/dL Albumin/Globulin Ratio (1-3) Lipase (11.0-82.0) U/L Urine Color Urine Appearance Urine pH (5-9) Ur Specific [place] (1.010-1.030) Urine Protein (Negative) Urine Ketones (Negative) Urine Blood (Negative) Urine Nitrate (Negative) Urine Bilirubin (Negative) Urine Urobilinogen (Negative) Ur Leukocyte Esterase (Negative) Urine Glucose (Negative) Blood Type O Positive Antibody Screen Negative 11/18/16 11/18/16 Range/Units 17:06 17:41 WBC (3.5-10.8) 10^3/ul RBC (4.0-5.4) 10^6/ul Hgb (14.0-18.0) g/dl Hct (42-52) % MCV (80-94) fL MCH (27-31) pg MCHC (31-36) g/dl RDW (10.5-15) % Plt Count (150-450) 10^3/ul MPV (7.4-10.4) um3 Neut % (Auto) (38-83) % Lymph % (Auto) (25-47) % [place] % (Auto) (1-9) % Eos % (Auto) (0-6) % Baso % (Auto) (0-2) % Absolute Neuts (auto) (1.5-7.7) 10^3/ul Absolute Lymphs (auto) (1.0-4.8) 10^3/ul Absolute Monos (auto) (0-0.8) 10^3/ul Absolute Eos (auto) (0-0.6) 10^3/ul Absolute Basos (auto) (0-0.2) 10^3/ul Absolute Nucleated RBC 10^3/ul Nucleated RBC % INR (Anticoag Therapy) (0.89-1.11) APTT (26.0-36.3) seconds Sodium (133-145) mmol/L Potassium 4.2 Chloride (101-111) mmol/L Carbon Dioxide (22-32) mmol/L Anion Gap (2-11) mmol/L BUN (6-24) mg/dL Creatinine (0.67-1.17) mg/dL Est GFR ( Amer) (>60) Est GFR (Non-Af Amer) (>60) BUN/Creatinine Ratio (8-20) Glucose (70-100) mg/dL Lactic Acid (0.5-2.0) mmol/L Calcium (8.6-10.3) mg/dL Total Bilirubin (0.2-1.0) mg/dL AST 31 ALT (7-52) U/L Alkaline Phosphatase (34-104) U/L Troponin I (<0.04) ng/mL C-Reactive Protein (< 5.00) mg/L B-Natriuretic Peptide ( - 100) pg/mL Total Protein (6.4-8.9) g/dL Albumin (3.2-5.2) g/dL Globulin (2-4) g/dL Albumin/Globulin Ratio (1-3) Lipase (11.0-82.0) U/L Urine Color Yellow Urine Appearance Clear Urine pH 6.0 (5-9) Ur Specific [place] 1.008 L (1.010-1.030) Urine Protein Negative (Negative) Urine Ketones Negative (Negative) Urine Blood Negative (Negative) Urine Nitrate Negative (Negative) Urine Bilirubin Negative (Negative) Urine Urobilinogen Negative (Negative) Ur Leukocyte Esterase Negative (Negative) Urine Glucose Negative (Negative) Blood Type Antibody Screen Assess/Plan/Problems-Billing Assessment: 66 yo M with hx of BPH, recent L TKA p/w bloody BMs, colitis s/p felx-sig 11/20 c /w ischemic colitis - Patient Problems (1) Ischemic colitis Comment: biospy pending c/w abx overnight and d/c on orals (2) BPH (benign prostatic hyperplasia) Comment: Continue home meds (3) S/P total knee arthroplasty Comment: No signs of infection. Reportedly red but now resolved. Stop Bactrim. Continue cipro/flagyl for IC (4) DVT prophylaxis Comment: SCDs Status and Disposition: Inpatient for IV ABx, possible c-scope
[2016-11-21] MEDS: metroNIDAZOLE IV 500 MG/100ML* 500 MG/100 ML BAG IVPB SCH (05:44)
[2016-11-21 05:50] LABS: Hematocrit 35 % (42-52); Hemoglobin 11.8 g/dl (14.0-18.0); Mean Corpuscular HGB Conc 34 g/dl (31-36); Mean Corpuscular Hemoglobin 31 pg (27-31); Mean Corpuscular Volume 91 fL (80-94); Mean Platelet Volume 9 um3 (7.4-10.4); Red Blood Count 3.85 10^6/ul (4.0-5.4); Red Cell Distribution Width 15 % (10.5-15); White Blood Count 9.2 10^3/ul (3.5-10.8)
[2016-11-21 06:04] LABS: BUN/Creatinine Ratio 13.6 (8-20); Calcium 8.6 mg/dL (8.6-10.3); EGFR African American 111.4 (>60); EGFR Non-African American 86.6 (>60); Potassium 3.8 mmol/L (3.5-5.0)
[2016-11-21] MEDS: Tamsulosin CAP* 0.4 MG PO SCH (08:52)
[2016-11-21] MEDS: Finasteride TAB* 5 MG PO SCH (08:52)
[2016-11-21] MEDS: Ferrous Sulfate TAB* 325 MG PO SCH (08:52)
[2016-11-21] MEDS: Ciprofloxacin IV(*) 400 MG in D5W 250 ML BAG* 160 ML IVPB SCH (08:53)
[2016-11-21 11:40] VITALS: BP 115/68
--- NOTE | 2016-11-22 01:44 | DS ---
CC: Dr. Junito Jerry* DISCHARGE SUMMARY: DATE OF ADMISSION: 11/18/16 DATE OF DISCHARGE: 11/21/16 PRIMARY CARE PROVIDER: Dr. Junito Jerry. PRIMARY DIAGNOSIS: Ischemic colitis. SECONDARY DIAGNOSES: Include: 1. Benign prostatic hypertrophy. 2. Recent total knee replacement. MEDICATIONS AT DISCHARGE: 1. Senna 2 tabs twice daily. 2. Tamsulosin 0.4 mg daily. 3. Proscar 5 mg daily. 4. Ferrous sulfate 1 tab twice daily. 5. Acetaminophen 650 mg every 6 hours as needed for pain and fever. 6. Flagyl 500 mg 3 times daily. 7. Ciprofloxacin 500 mg 2 times daily. PERTINENT LABORATORY DATA: Hemoglobin on the day of discharge 11.8. PERTINENT PATHOLOGY DATA: Biopsy from flex sigmoidoscopy indicative of ischemic colitis. PROCEDURES PERFORMED DURING HOSPITAL STAY: Flex sigmoidoscopy performed by Dr. Villalobos on 11/20/16. HISTORY OF PRESENT ILLNESS AND HOSPITAL COURSE: This is a 66-year-old male with past medical history as outlined in the history of present illness on the day of admission, presented to the hospital with abdominal pain as well as associated with bright red blood per rectum. A CAT scan performed in the emergency room indicated submucosal edema in the descending colon consistent with colitis as well as diffuse wall thickening of the urinary bladder. The patient was taken for a flex sigmoidoscopy with Dr. Villalobos with diagnosis of ischemic colitis, which was confirmed by pathology from biopsies taken. The patient had no additional bleeding during the course of the hospital stay. His hemoglobin remained stable. His diet was advanced after colonoscopy, tolerated the diet without difficulty. The patient was treated with ciprofloxacin and Flagyl during the course of the hospital stay. On presentation, his peak white blood cell count was 16, down trending to 9.2 on the day of discharge. He remained afebrile during the course of the hospital stay. The patient will follow up with Dr. Jerry upon discharge from the hospital. There were no complications of this patient's hospital stay. He was counseled at length about continued followup with his primary care provider. At this point, the patient has aversion to contact with any medical provider; however, is amenable to increasing contact at this point. At followup, please; no specific labs or vitals that need followup. Reasons to return to the hospital included, but not limited to recurrent or worsening of symptoms including abdominal pain, bright red blood per rectum, fevers, chills, night sweats, chest pain, shortness of breath, nausea, vomiting , lightheadedness, loss of consciousness, inability to obtain or tolerate his medications were discussed with the patient and his . He acknowledged understanding. TIME SPENT: Greater than 60 minutes were spent on the discharge of this patient , greater than half was spent [id number] with the patient. [id number]/[facility] #: [id number] DEMOND
== END 2016-11-21 12:00 | disposition home or self-care (01) | DRG 395 ==
LOC: ED 15:15 → MEDTELE 18:50 → OBSVTOIN 11-19 11:32
PROVIDERS: ADMIT Hospitalist; ATTEND Internal Medicine
PROC: 0DBN8ZX Excision of Sigmoid Colon, Via Natural or Artificial Opening Endoscopic, Diagnostic (ICD-10-PCS; principal; 2016-11-20)
DX: K55.9 Vascular disorder of intestine, unspecified (principal); K76.0 Fatty (change of) liver, not elsewhere classified; N40.0 Benign prostatic hyperplasia without lower urinary tract symptoms; Z96.651 Presence of right artificial knee joint; E66.9 Obesity, unspecified; R40.2412 Glasgow coma scale score 13-15, at arrival to emergency department; K40.90 Unilateral inguinal hernia, without obstruction or gangrene, not specified as recurrent; K64.4 Residual hemorrhoidal skin tags; K57.30 Diverticulosis of large intestine without perforation or abscess without bleeding; Z87.891 Personal history of nicotine dependence; Z72.89 Other problems related to lifestyle; Z82.49 Family history of ischemic heart disease and other diseases of the circulatory system; Z68.31 Body mass index [BMI] 31.0-31.9, adult; Z83.3 Family history of diabetes mellitus; Z83.79 Family history of other diseases of the digestive system
CPT/HCPCS: 36415; 71010; 74177; 80048; 80053; 81003; 82270; 83605; 83630; 83690; 83880; 84484; 85014; 85018; 85025; 85027; 85610; 85730; 86140; 86850; 86900; 86901; 87045; 87046; 87328; 87329; 87493; 87899; 88305; A9270-GY; G0378; J0744; J2250; J3010; Q9967